=== PATIENT | female | born 1955 | race American Indian/Alaskan Native ===

== ENCOUNTER 2017-03-14 12:21 | Emergency (ER) | payer SELFPAY ==
[2017-03-14 12:43] VITALS: BP 159/81
[2017-03-14] MEDS ORDERED: FUL-GLO OP ONE (14:54)
[2017-03-14] MEDS ORDERED: BSS ONE (14:54)
[2017-03-14] MEDS ORDERED: TETRACAINE 0.5% ONE (14:55)
--- NOTE | 2017-03-14 15:34 | Emergency Department Report ---
ED General Adult HPI - General Chief complaint: Eye Problems Stated complaint: LEFT EYE PAIN Time Seen by Provider: 03/14/17 15:09 Source: patient Mode of arrival: Ambulatory Limitations: No Limitations - History of Present Illness Initial comments: Patient comes into the ER with complaints of redness to left eye as well as dental pain. Patient states that earlier today she felt like she had an eyelash in her eye and went to get it out arrived. Shortly after she noticed that her left eye was red. Patient denies any pain or vision changes to her eye. Patient also complaining of right sided upper dental pain for the past 2 weeks. Patient states that her tooth broke off and she has been taking a lot of Aleve to help the pain. Patient denies any fever, chills, nasal congestion, vision changes, facial swelling. -: days(s) - Related Data Previous Rx's Medication Instructions Recorded Last Taken Type Amoxicillin 1,000 mg PO BID #40 capsule 03/14/17 Unknown Rx Polymyxin B Sulf/Trimethoprim 2 drop OP TID 5 Days 03/14/17 Unknown Rx [Polytrim Eye Drops 28182nfvov/0.1%] traMADol [Ultram 50 MG tab] 50 mg PO Q4HR PRN #20 tablet 03/14/17 Unknown Rx Allergies Allergy/AdvReac Type Severity Reaction Status Date / Time No Known Allergies Allergy Verified 03/14/17 15:01 ED Review of Systems ROS: Stated complaint: LEFT EYE PAIN Other details as noted in HPI Constitutional: denies: chills, fever Eyes: other (left eye redness). denies: eye pain, eye discharge, vision change ENT: dental pain. denies: ear pain, throat pain, epistaxis Respiratory: denies: cough, shortness of breath, wheezing Cardiovascular: denies: chest pain, palpitations Endocrine: no symptoms reported Gastrointestinal: denies: abdominal pain, nausea, diarrhea Genitourinary: denies: urgency, dysuria, discharge Musculoskeletal: denies: back pain, joint swelling, arthralgia Skin: denies: rash, lesions Neurological: denies: headache, weakness, paresthesias Psychiatric: denies: anxiety, depression Hematological/Lymphatic: denies: easy bleeding, easy bruising ED Past Medical Hx - Past Medical History Previous Medical History?: Yes - Surgical History Past Surgical History?: No - Social History Smoking Status: Current Every Day Smoker - Medications Home Medications: Home Medications Medication Instructions Recorded Confirmed Last Taken Type Amoxicillin 1,000 mg PO BID #40 capsule 03/14/17 Unknown Rx Polymyxin B Sulf/Trimethoprim 2 drop OP TID 5 Days 03/14/17 Unknown Rx [Polytrim Eye Drops 35445uwioi/0.1%] traMADol [Ultram 50 MG tab] 50 mg PO Q4HR PRN #20 tablet 03/14/17 Unknown Rx ED Physical Exam - General Limitations: No Limitations General appearance: alert, in no apparent distress - Head Head exam: Present: atraumatic, normocephalic - Eye Eye exam: Present: PERRL, EOMI, other (left lateral conjunctival hemorrhage is small corneal abrasion noted). Absent: scleral icterus, conjunctival injection , nystagmus, periorbital swelling, periorbital tenderness Pupils: Present: normal accommodation - ENT ENT exam: Present: mucous membranes moist, TM's normal bilaterally, normal external ear exam, other (right upper dental decay with gum erythematous and swelling. No obvious abscess noted.) - Neck Neck exam: Present: normal inspection, full ROM. Absent: tenderness, lymphadenopathy - Respiratory Respiratory exam: Present: normal lung sounds bilaterally. Absent: respiratory distress, wheezes, rales, rhonchi, decreased breath sounds - Cardiovascular Cardiovascular Exam: Present: regular rate, normal rhythm. Absent: systolic murmur, diastolic murmur, rubs, gallop - GI/Abdominal GI/Abdominal exam: Present: soft, normal bowel sounds - Extremities Exam Extremities exam: Present: normal inspection - Back Exam Back exam: Present: normal inspection - Neurological Exam Neurological exam: Present: alert, oriented X3 - Psychiatric Psychiatric exam: Present: normal affect, normal mood - Skin Skin exam: Present: warm, dry, intact, normal color. Absent: rash ED Course Vital Signs 03/14/17 12:38 Temperature 98.4 F Pulse Rate 80 Respiratory 18 Rate Blood Pressure 159/81 O2 Sat by Pulse 100 Oximetry ED Medical Decision Making - Medical Decision Making Patient is nontoxic and hemodynamically stable. I'll start patient on medications probably for her dental pain and infection as well as I have encouraged patient about the self-limiting effects of her conjunctival hemorrhage. Give patient some ophthalmic eye drops to help prevent any potential infection. I will also give patient referral to dental clinics for her tooth. Patient is in agreement with treatment plan and patient is stable for discharge. Critical care attestation.: If time is entered above; I have spent that time in minutes in the direct care of this critically ill patient, excluding procedure time. ED Disposition Clinical Impression: Subconjunctival hemorrhage of left eye, Corneal abrasion, left, Pain, dental, Dental infection Disposition: TO HOME OR SELFCARE Is pt being admited?: No Does the pt Need Aspirin: No Condition: Good Instructions: Toothache (ED), Subconjunctival Hemorrhage (ED), Corneal Abrasion (ED) Prescriptions: Amoxicillin 1,000 mg PO BID #40 capsule Polymyxin B Sulf/Trimethoprim [Polytrim Eye Drops 47277eucdy/0.1%] 2 drop OP TID 5 Days traMADol [Ultram 50 MG tab] 50 mg PO Q4HR PRN #20 tablet PRN Reason: Pain Referrals: PRIMARY CARE, [Primary Care Provider] - 3-5 Days [facility] [Outside] - 3-5 Days [facility] [Outside] - 3-5 Days Time of Disposition: 15:37
== END 2017-03-14 15:49 | disposition home or self-care (01) ==
LOC: ED 12:21
DX: H11.32 Conjunctival hemorrhage, left eye (principal); S05.02XA Injury of conjunctiva and corneal abrasion without foreign body, left eye, initial encounter; K04.7 Periapical abscess without sinus; F17.200 Nicotine dependence, unspecified, uncomplicated; X58.XXXA Exposure to other specified factors, initial encounter; Y93.89 Activity, other specified; Y92.89 Other specified places as the place of occurrence of the external cause; Y99.8 Other external cause status
CPT/HCPCS: 99282

== ENCOUNTER 2021-07-15 15:47 | Emergency (ER) | payer SELFPAY ==
[2021-07-15 16:00] VITALS: BP 182/76
[2021-07-15] MEDS ORDERED: ASPIRIN 81 MG TAB CHEW PO ONE (17:15)
--- NOTE | 2021-07-15 17:15 | Event Note ---
ED Screening Note Date of service: 07/15/21 Time: 17:12 ED Screening Note: 65-year-old female patient presents to the emergency department with complaints of chest pain and right leg pain starting last night and generalized weakness today. No history of similar symptoms. Family convinced patient to come to the emergency department for evaluation because "she just didn't look right." Patient has never been evaluated by a [facility]er first. Chest pain is not reproducible with palpation. Hypertensive in triage. General: Awake, appropriately interactive, no acute distress. Neck: Supple. Full range of motion intact. Cardiovascular: Regular rate and rhythm. Normal peripheral perfusion. Pulmonary: Clear to auscultation bilaterally. No respiratory distress. Patient is speaking normally without use of accessory muscles. Skin: No apparent rashes or lesions. Neurological: No facial asymmetry. Speech is clear. Follows commands. Patient is alert and oriented. Musculoskeletal: Moves all four extremities spontaneously with normal range of motion. Psych: Cooperative. Appropriate mood and affect. EKG, labs, chest x-ray ordered. director of in service education requested. Decision to pursue further diagnostic work-up for evaluation of venous thromboembolism deferred to additional ED providers following full history and complete physical exam. I have greeted and performed a focused rapid initial assessment of this patient. A comprehensive ED assessment and evaluation of the patient, analysis of all test results, and completion of the medical decision-making process will be conducted by additional ED providers. This initial assessment/diagnostic orders/clinical plan/treatment(s) is/are subject to change based on patients health status, clinical progression and re-assessment. Further treatment and workup at subsequent clinical provider's discretion. Patient/guardian urged not to elope from the ED as their condition may be serious if not clinically assessed and managed.
--- NOTE | 2021-07-15 17:53 | XRay Report ---
CHEST 2 VIEWS INDICATION / CLINICAL INFORMATION: chest pain. COMPARISON: None available. FINDINGS: SUPPORT DEVICES: None. HEART / MEDIASTINUM: No significant abnormality. LUNGS / PLEURA: No significant pulmonary or pleural abnormality. No pneumothorax. ADDITIONAL FINDINGS: Granulomas IMPRESSION: 1. No acute findings. Signer Name: Sj Monroe MD Signed: 07/15/2021 5:49 PM Workstation Name: [id number]
--- NOTE | 2021-07-15 18:07 | Emergency Department Report ---
ED General Adult HPI - General Chief complaint: Chest Pain Stated complaint: LUMP ON CHEST Time Seen by Provider: 07/15/21 16:53 Source: patient Mode of arrival: Ambulatory Limitations: No Limitations - History of Present Illness Initial comments: Patient is a 65-year-old F Monegasque female with no significant past medical history who states that 3 days ago she started noticing area of swelling on the left border of her sternum approximately the level of the third rib. States there is a little bit of puffiness to the skin and some very faint redness but no pain. States there is also no shortness of breath no diaphoresis no exertional symptoms. Patient mentioned this to some coworkers and they stated they were very concerned that something bad might be happening. Patient mention this to family member today and while in the car family member brought her directly to the emergency department. Patient states that she feels as though her family set her up and she does not think that she needs to come to the emergency department at this time. Patient did mention to her family member that she was feeling a little fatigued and tired today from some of the work that she did in the last couple days. States that yesterday she was moving around a little more than normal at work. 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 Last night she did have some bilateral leg and foot cramps that lasted briefly she stretched her legs and these resolved. This believes that this may have come from some overwork yesterday. Denies nausea vomiting diarrhea cough cold congestion fevers or chills at this time. - Related Data Previous Rx's Medication Instructions Recorded Last Taken Type Amoxicillin 1,000 mg PO BID #40 capsule 03/14/17 Unknown Rx Polymyxin B Sulf/Trimethoprim 2 drop OP TID 5 Days drops 03/14/17 Unknown Rx [Polytrim Eye Drops 35744uzjdm/0.1%] traMADoL [Ultram 50 MG tab] 50 mg PO Q4HR PRN #20 tablet 03/14/17 Unknown Rx Allergies Allergy/AdvReac Type Severity Reaction Status Date / Time No Known Allergies Allergy Verified 03/14/17 15:01 ED Review of Systems ROS: Stated complaint: LUMP ON CHEST Other details as noted in HPI Comment: All other systems reviewed and negative ED Past Medical Hx - Past Medical History Previous Medical History?: No - Surgical History Past Surgical History?: No - Social History Smoking Status: Current Every Day Smoker - Medications Home Medications: Home Medications Medication Instructions Recorded Confirmed Last Taken Type Amoxicillin 1,000 mg PO BID #40 capsule 03/14/17 Unknown Rx Polymyxin B Sulf/Trimethoprim 2 drop OP TID 5 Days drops 03/14/17 Unknown Rx [Polytrim Eye Drops 17563vnqmz/0.1%] traMADoL [Ultram 50 MG tab] 50 mg PO Q4HR PRN #20 tablet 03/14/17 Unknown Rx ED Physical Exam - General Limitations: No Limitations General appearance: alert, in no apparent distress - Head Head exam: Present: atraumatic, normocephalic - Eye Eye exam: Present: normal appearance, PERRL, EOMI - ENT ENT exam: Present: normal orophraynx, mucous membranes moist - Neck Neck exam: Present: normal inspection - Respiratory Respiratory exam: Present: normal lung sounds bilaterally. Absent: respiratory distress, wheezes, rales, rhonchi, chest wall tenderness - Cardiovascular Cardiovascular Exam: Present: regular rate, normal rhythm, normal heart sounds. Absent: systolic murmur, diastolic murmur, rubs, gallop - GI/Abdominal GI/Abdominal exam: Present: soft, normal bowel sounds. Absent: distended, tenderness, guarding, rebound - Extremities Exam Extremities exam: Present: normal inspection, full ROM - Back Exam Back exam: Present: normal inspection - Neurological Exam Neurological exam: Present: alert, oriented X3 - Psychiatric Psychiatric exam: Present: normal affect, normal mood - Skin Skin exam: Present: warm, dry, intact, normal color. Absent: rash - Other Other exam information: In the junction of the border of the left sternum and third rib the patient does have small amount of what appears to be edema to the skin. No induration no erythema no warmth. There is nontender. Able to palpate the rib and sternum underneath the skin with no issue. There is no crepitus. ED Course Vital Signs 07/15/21 07/15/21 15:58 15:59 Temperature 98.9 F Pulse Rate 92 H Respiratory 16 Rate Blood Pressure 182/76 O2 Sat by Pulse 96 Oximetry ED Medical Decision Making - EKG Data -: EKG Interpreted by Wy - EKG Data 07/15/21 18:10 EKG normal sinus rhythm rate of 76. Golden normal intervals normal. No ST segment elevations or depressions. This appears to be a normal EKG. Time interpretation 1727 - Radiology Data CXR WNL - Medical Decision Making Patient is a 65-year-old F Monegas[place] female who is presenting with swelling to her anterior chest. This is most consistent with a costochondral irritation and swelling to the chest wall. Patient suggested that she should use a cold therapy and ibuprofen. Chest x-ray EKG is normal. Regarding the cramping did state that I thought the patient could use evaluation of her to her potassium and magnesium levels. States she is deathly afraid of needles and she is refused. Told the patient she should try to eat more foods with potassium and can do a follow-up with her primary care physician. Do not see any indication the patient needs cardiac work-up at this time. Critical care attestation.: If time is entered above; I have spent that time in minutes in the direct care of this critically ill patient, excluding procedure time. ED Disposition Clinical Impression: Costochondritis, acute Disposition: 01 HOME / SELF CARE / HOMELESS Is pt being admited?: No Does the pt Need Aspirin: No Condition: Stable Instructions: Costochondritis, [id number], Potassium Content of Foods Time of Disposition: 18:14
--- NOTE | 2021-07-16 08:34 | Electrocardiograph Report ---
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
== END 2021-07-15 18:21 | disposition home or self-care (01) ==
LOC: ED 15:47
DX: M94.0 Chondrocostal junction syndrome [Tietze] (principal)
CPT/HCPCS: 71046; 93005; 99283